=== PATIENT | male | born 1940 | race Caucasian/White ===

== ENCOUNTER 2022-04-06 15:30 | Outpatient (CLI) | payer OTHER, SELFPAY ==
[2022-04-06 21:50] LABS: TSH With Reflex to FT4* 0.778 uIU/mL (0.270-4.200)
== END 2022-04-06 15:31 | disposition home or self-care (01) ==
LOC: LKVREF 15:34
PROVIDERS: Visit Provider Nurse Practitioner Family
DX: R07.9 Chest pain, unspecified (principal); R42 Dizziness and giddiness; F41.9 Anxiety disorder, unspecified; F32.A Depression, unspecified
CPT/HCPCS: 84443